=== PATIENT | female | born 1970 ===

== ENCOUNTER → 2020-05-22 | Day surgery (SDC) | payer OTHER ==
[~2020-05-22] MED LIST: PERCOCET 5-3251 EACH PO; SYNTHROID75 MCG PO; TAMOXIFEN CITRA10 MG PO
== END | disposition home or self-care (01) ==
LOC: FAS 08:02
DX: M75.02 Adhesive capsulitis of left shoulder (principal); E03.9 Hypothyroidism, unspecified; Z98.890 Other specified postprocedural states; Z20.822 Contact with and (suspected) exposure to COVID-19; Z85.3 Personal history of malignant neoplasm of breast
CPT/HCPCS: J0171; J1040; J2250; J2704; J2795; J7120; U0002